=== PATIENT | female | born 1945 | race Caucasian/White ===

== ENCOUNTER → 2017-01-20 | Outpatient (CLI) | payer MEDICARE, BC ==
--- NOTE | 2017-01-20 15:47 | RADIOLOGY REPORT PS360 ---
EXAM: CT LUNG LOW DOSE WO CONTRAST TECHNIQUE: . The exam was performed on a [employer] Light Speed [address] scanner using 3.0 mGy CTDI. A low dose helical CT axial CHEST was performed on a multi-detector scanner From the acquired axial images, thickened sagittal and & coronal reconstruction MIPPimages performed on CT workstation The LDCT was performed in a facility that meets the criteria for the screening program. Data regarding this exam was submitted to [employer] which is an approved registry. The order for this exam indicates that it came as a result of a lung cancer screening counseling shard decision-making visit that included all the elements required of such a visit including smoking cessation. The radiologist interpreting this exam meets the CMS criteria for the LDCT lung cancer screening program. The exam is reported using the Lung-RADS classification scale and reported to the ACR registry. NOTE: This study was performed for the specific purposes of lung cancer screening and is not an alternative to diagnostic chest CT. RADIATION DOSE: CTDI vol(CT dose Index-volume) = mGy DLP (Dose Length Product) = mGy-cm COMPARISON: None HISTORY: Asymptomatic Current smoker. One pack per day 55 years =55 pack-year FINDINGS: No suspicious nodules evident Indeterminate/Non-actionable Nodules(Category2): None Small fairly linear density is seen at the inferior reflection of the major fissure on left where it meets the generous anterior fat pad on left. This area may be slightly accentuated by the thickened sagittal and coronal reconstruction MIPPimages This most likely likely reflects linear area of pleural and parenchymal scarring. Follow-up LDCT not over one year should be adequate adequate Benign nodules(Category1)colon Calcified granuloma 4 mm x 5 mm size at the L UL. Axial image 22 LUNG PARENCHYMA Patient's large size along with the low photon technique further diminishes resolution No significant airway disease. No fibrosis. No definitive emphysematous changes as of yet, only mild hyperexpansion OTHER ANATOMIC REGIONS Lymph Nodes: No hilar no nor mediastinal adenopathy. Small calcified nodes or vessels superior left jyoti. No enlarged lymph nodes evident. A few Scattered small nodes Present in the mediastinum and jyoti Pleura: Unremarkable OTHER FINDINGS: . Cardiac: Dense coronary artery calcification most evident LAD. Atherosclerotic calcification aorta with calcification likely narrowing origin of left renal arteries more so than right Degenerative hypertrophic and hyperostosis changes T-spine IMPRESSION: 1. No suspicious lung nodule or mass. -Benign Calcified granuloma YOSEF -Minor linear density, most likely due to scarring at the inferior reflection of left major fissure = Lung RADS Category: 2 2.. Extensive calcified LAD incidentally noted RECOMMENDATIONS: 12 monthd LDCT follow-up
--- NOTE | 2017-01-21 08:59 | RADIOLOGY REPORT PS360 ---
DEXA SCAN.-BONE DENSITY STUDY HIPS AND LUMBAR SPINE HISTORY: Postmenopausal female 71-year-old fractured humerus 5 years ago. Diabetes. Smoker. Low calcium intake TECHNIQUE: DEXA scan hip and lumbar spine The most complete data summary and color graphic presentation of the today's ( and any prior ) DEXA findings are available in PACS. Definition and treatment guidelines included. COMPARISON: None listed LUMBAR SPINE: Normal bone density L2 vertebral body demonstrates the lowest T score 0.0 with BMD1.197 g/cm sq Overall mean lumbar L1-L4 T score 1.6 with BMD1.398 g/cm sq . On this limited AP image note mild gentle levoscoliosis towards the lower L-spine HIPS: Femoral neck density is best predictor of hip fracture risk . Osteopenia both femoral neck Right femoral neck demonstrates the lowest T score -2.2 with BMD0.726 g/cm sq . Left femoral neck T score -1.5 with BMD 0.83 The limited AP images hips suggested there are some slight increased sclerotic changes of both femoral head head and acetabulum which may reflect degenerative changes at hips.. Suggest AP pelvis correlation Averaging all regions today's Hip Mean T score -0.7 with BMD0.925 g/cm sq . This reflects Overall normal bone density at hips .. IMPRESSION 1. LUMBAR SPINE: Normal bone density throughout Normal bone density at all sampled vertebral bodies 2. HIPS: ,... Overall normal bone density at hips . However would note Osteopenia at both right and left femoral neck There appears to be some mild sclerotic changes femoral head & acetabulum which may reflect developing degenerative changes at hips. Consider AP pelvis correlation WHO criteria for post-menopausal, Women: Normal: T-score at or above -1 SD Osteopenia: T-score between -1 and -2.5 SD Osteoporosis: T-score at or below -2.5 SD
== END ==
LOC: RAD 01-15 14:00
DX: Z78.0 Asymptomatic menopausal state (principal); Z13.820 Encounter for screening for osteoporosis; Z87.891 Personal history of nicotine dependence; F17.200 Nicotine dependence, unspecified, uncomplicated; Z12.2 Encounter for screening for malignant neoplasm of respiratory organs